=== PATIENT | female | born 1980 | race African-American/Black ===

== ENCOUNTER 2021-03-24 01:10 | Emergency (ER) | payer OTHER ==
[~2021-03-24] VITALS: Ht 160 cm; Wt 96.2 kg
[2021-03-24 02:20] LABS: Hemoglobin 12.8 g/dL (12.2-16.2)
[2021-03-24 02:21] LABS: Hematocrit 38.7 % (36.0-46.0); Mean Corpuscular Hemoglobin 26.9 pg (28.0-32.0); Mean Corpuscular Hgb Conc. 33.1 g/dL (32.0-36.0); Mean Corpuscular Volume 81.3 fL (80.0-100.0); Red Blood Cells 4.76 10^6/uL (4.0-5.20); Red Cell Distribution Width 14.2 % (11.8-14.3); White Blood Cell 4.9 10^3/uL (4.4-10.8)
[2021-03-24 02:24] LABS: Blast Cells 0; Metamyelocytes % 0; Myelocytes % 0; Promyelocytes % 0; Reactive Lymphocytes 0
[2021-03-24 02:37] LABS: Albumin 3.6 g/dL (3.4-5.0); BUN/Creatinine Ratio 21.2; Calcium 8.8 mg/dL (8.5-10.1); Potassium 4.1 mmol/L (3.5-5.1)
[2021-03-24 02:39] LABS: Bilirubin, Total 0.4 mg/dL (0.2-1.0); Total Protein 7.1 g/dL (6.4-8.2)
[2021-03-24 03:06] LABS: Band Neutrophils % (manual) 0; Monocytes % (manual) 17 (0-12)
[2021-03-24 03:07] LABS: Basophils % (manual) 2 (0.0-2.0); Eosinophils % (manual) 1 (0-7); Lymphocytes % (manual) 27 (10.0-50.0)
[2021-03-24 06:40] VITALS: BP 94/56
== END 2021-03-24 06:45 | disposition home or self-care (01) ==
LOC: ER 01:10 → EDBD 01:10 → ER 06:45
DX: O46.91 Antepartum hemorrhage, unspecified, first trimester (principal); Z3A.01 Less than 8 weeks gestation of pregnancy
CPT/HCPCS: 36415; 76801; 76817; 80053; 84702; 85007; 85027; 86850; 86870; 86900; 86901